=== PATIENT | male | born 1985 | race Caucasian/White ===

== ENCOUNTER → 2024-08-12 08:09 | Outpatient (REF) | payer BC, SELFPAY | LOC: PAVMRI 08:09 | PROVIDERS: ATTENDING PHYSICIAN Internal Medicine Cardiovascular Disease; FAMILY PHYSICIAN General Practice | DX: Q23.1 Congenital insufficiency of aortic valve (principal); Q21.12 Patent foramen ovale; I51.7 Cardiomegaly; I49.1 Atrial premature depolarization; R00.2 Palpitations; R94.31 Abnormal electrocardiogram [ECG] [EKG]; Q21.0 Ventricular septal defect | CPT/HCPCS: 75561; 75565; A9585 ==